=== PATIENT | female | born 1980 | race Caucasian/White ===

== ENCOUNTER 2017-08-12 17:13 | Emergency (ER) | payer OTHER ==
[~2017-08-12] VITALS: Ht 160 cm; Wt 119.8 kg
[~2017-08-12 17:13] MED LIST: ACET325 PO; ALBU90OI INH; AMOX500 PO; AZIT250 PO; AZIT500 PO; CODACE30 PO; CYCL10 PO; DIPATR PO; HYDACE5 PO; HYDGUAL120 PO; IBUP200; IBUP600 PO; IBUP800 PO; METCAR500 PO; MULVITA PO; NAPR250 PO; NAPR500 PO; OXYACE5T PO; PENVK500 PO; PROM25 PO; RXCODACET PO; RXHYDACE PO; RXHYDGUAS PO; TRIHYD253B PO
[2017-08-12] MEDS ORDERED: Pseudoephedrine30 MG PO (18:01)
[2017-08-12] MEDS ORDERED: Augmentin 875-1 EACH PO (18:01)
[2017-08-12] MEDS ORDERED: Mucinex600 MG PO (18:01)
[2018-07-07] MEDS ORDERED: Veetids 500500 MG PO (03:25)
== END 2017-08-12 18:18 | disposition home or self-care (01) ==
LOC: ER 17:13
DX: H66.92 Otitis media, unspecified, left ear (principal); Z91.012 Allergy to eggs; Z88.8 Allergy status to other drugs, medicaments and biological substances
CPT/HCPCS: 99283

== ENCOUNTER 2017-10-28 13:35 | Emergency (ER) | payer OTHER ==
[~2017-10-28] VITALS: Ht 160 cm; Wt 117.9 kg
[~2017-10-28 13:35] MED LIST changes: +Augmentin 875-1 EACH PO; +Mucinex600 MG PO; +Pseudoephedrine30 MG PO
[2017-10-28] MEDS ORDERED: Sudogest60 MG PO (14:31)
[2017-10-28] MEDS ORDERED: Amoxicillin500 MG PO (14:31)
[2018-07-07] MEDS ORDERED: Veetids 500500 MG PO (03:25)
== END 2017-10-28 14:53 | disposition home or self-care (01) ==
LOC: ER 13:35
DX: K02.9 Dental caries, unspecified (principal); K03.81 Cracked tooth; I10 Essential (primary) hypertension; Z87.891 Personal history of nicotine dependence; Z91.012 Allergy to eggs; Z88.8 Allergy status to other drugs, medicaments and biological substances; Z79.899 Other long term (current) drug therapy
CPT/HCPCS: 64400; 99283

== ENCOUNTER 2019-02-01 02:47 | Inpatient (IN) | payer OTHER ==
[~2019-02-01] VITALS: Ht 160 cm; Wt 116.2 kg
[~2019-02-01 02:47] MED LIST changes: +Amoxicillin500 MG PO; +Sudogest60 MG PO; +Veetids 500500 MG PO
[2019-02-01 03:20] LABS: BASOPHILS ABSOLUTE AUTO 0.08 K/mm3 (0.00-0.23); BASOPHILS PERCENT AUTO 1 % (0-2); EOSINOPHILS ABSOLUTE AUTO 0.38 K/mm3 (0.00-0.68); EOSINOPHILS PERCENT AUTO 2 % (0-6); Hematocrit 40.7 % (33.0-51.0); Hemoglobin 12.7 g/dL (11.5-16.0); IMMATURE GRAN ABSOLUTE AUTO 0.07 K/mm3 (0.00-0.10); IMMATURE GRAN PERCENT AUTO 0 % (0-1); LYMPHOCYTES ABSOLUTE AUTO 2.78 K/mm3 (0.84-5.20); LYMPHOCYTES PERCENT AUTO 16 % (21-46); MONOCYTES ABSOLUTE AUTO 1.01 K/mm3 (0.16-1.47); MONOCYTES PERCENT AUTO 6 % (4-13); Mean Corpuscular HGB 27.1 pg (26.0-34.0); Mean Corpuscular HGB Conc 31.2 g/dL (31.5-36.5); Mean Corpuscular Volume 87 fL (80-100); Mean Platelet Volume 9.7 fL (9.1-12.4); NEUTROPHILS PERCENT AUTO 75 % (41-73); Platelet Count 419 K/mm3 (150-400); RDW Coefficient Variation 15.6 % (11.7-14.2); RDW Standard Deviation 48.8 fL (35.1-46.3); Red Blood Cell Count 4.68 M/mm3 (3.80-5.20); White Blood Cell Count 17.42 K/mm3 (4.00-11.30)
[2019-02-01 03:41] LABS: Alanine Aminotransfer (ALT/SGP 91 U/L (12-78); Albumin, Blood 3.1 g/dL (3.4-5.0); Albumin/Globulin Ratio 0.9 (0.8-1.8); Alk Phos 151 U/L (50-136); Anion Gap 8 mmol/L (6-16); Aspartate Aminotrans (AST/SGOT 88 U/L (12-37); Bilirubin, Total 1.9 mg/dL (0.1-1.0); Blood Urea Nitrogen 21 mg/dL (8-24); Bun/Creatinine Ratio 23.6 (12.0-20.0); CO2, Blood 22 mmol/L (21-32); Calcium, Blood 8.3 mg/dL (8.5-10.1); Chloride, Blood 109 mmol/L (98-108); Creatinine, Blood 0.89 mg/dL (0.40-1.00); Globulin, Blood 3.5 g/dL (2.2-4.0); Glomerular Filtration Rate >60 (60-); Glucose, Blood 141 mg/dL (70-99); Potassium, Blood 4.6 mmol/L (3.5-5.5); Sodium, Blood 139 mmol/L (136-145); Total Protein, Blood 6.6 g/dL (6.4-8.2)
[2019-02-01 04:21] LABS: Source, Urine Clean Catch
[2019-02-01 04:33] LABS: Base Excess Venous -4.9 mmol/L; Bicarbonate Venous 21.6 mmol/L (24.0-30.0); PCO2 Venous 25.2 mmHg (38-42); PO2 Venous 134 mmHg (38-42); pH Blood Venous 7.48 (7.34-7.37)
[2019-02-01 04:38] LABS: Bilirubin, Urine Neg (Neg); Blood, Urine 5+ (Neg); Glucose Qualitative, Urine Neg (Neg); Ketones, Urine Neg (Neg); Leukocyte Esterase, Urine 1+ (Neg); Nitrite, Urine Neg (Neg); Protein, Urine 3+ (Neg); Urobilinogen, Urine NORM (Normal)
[2019-02-01 04:47] LABS: Appearance, Urine Hazy (Clear); Color, Urine Yellow (P-Yellow); U Amphetamine Screen Not Detected; U Barbituate Screen Not Detected; U Benzodiazapine Screen Not Detected; U Buprenorphine Screen Not Detected; U Cannabinoids Screen Not Detected; U Cocaine Screen Not Detected; U Methadone Screen Not Detected; U Methamphetamine Screen Not Detected; U Opiates Screen Not Detected; U Oxycodone Screen Not Detected; U Phencyclidine Screen Not Detected; U Propoxyphene Screen Not Detected
[2019-02-01 04:49] LABS: Bacteria Few /hpf; Mucus Light (0-Heavy); Red Blood Cells, Urine TNTC /hpf (0-2); Squamous Epithelial Cells Few /hpf (Few); White Blood Cells, Urine 0-2 /hpf (0-5)
[2019-02-01 06:51] LABS: Free Thyroxine 1.09 ng/dL (0.70-1.60)
[2019-02-01 06:54] LABS: Thyroid Stimulating Hormone 2.71 uIU/mL (0.360-4.800)
--- NOTE | 2019-02-01 08:10 | NUR ---
ARRIVAL TO UNIT Assumed care of pt upon arrival to unit at 0705 with Maximilian CHEN. Telephone report received from offgoing ED RN, Mariluz. Pt arrived on room air. Transferred from ED [facility] to ICU bed with SBA. Pt weak and had dyspnea with exertion. Placed on 2 LPM NC. Diminished lung sounds on right side. Clear lung sounds on left side. Sinus tachycardia per monitor. Pt A&O x 4. Able to answer all questions for admission. Voids into bedside commode. Pt states she is currently menstruating. Provided with pad and underwear. Pt's spouse at bedside at this time. Call placed to Dr Soto to obtain order for mucolytic as pt has dry, harsh cough. Pt currently PCU status.
--- NOTE | 2019-02-01 08:53 | NUR ---
Echocardiogram completed.
--- NOTE | 2019-02-01 10:50 | NUR ---
ORTHOSTATICS Supine: BP: 103/70 HR: 101 Sitting: BP: 107/72 HR: 100 Standing: BP: 113/76 HR: 103
[2019-02-01 11:13] LABS: CPK Creatine Kinase 61 U/L (26-193); Troponin I <0.015 ng/mL (0.000-0.040)
--- NOTE | 2019-02-01 11:20 | NUR ---
UPDATE Pt has been OOB several times to use BSC. Initially, pt tolerated activity well with some dyspnea with exertion and weakness. Pt has had over 1300 mL urine ouput since arrival to unit. Dr Soto in to see pt this AM. After provider left, pt used commode and experienced shortness of breath, diaphoresis, chest pain, and nausea. Pt assisted back to bed. This RN placed call to Dr Soto to update. Provider entered new orders. While pt having abdominal ultrasound, pt was noted to be extremely pale with perioral cyanosis. Pt was talking to staff; stated no new symptoms. This RN placed call to Dr Soto and asked her to see the patient. Provider ordered cardiology consult. Provider visited bedside to reassess. Dr Olvera notified of consult by Maximilian CHEN.
[2019-02-01 11:26] LABS: Hematocrit 40.2 % (33.0-51.0); Hemoglobin 12.6 g/dL (11.5-16.0)
[2019-02-01 11:40] LABS: Very Low Density Lipoprot Chol 20 mg/dL (6-28)
[2019-02-01 11:41] LABS: Cholesterol 97 mg/dL (50-200); HDL Cholesterol 24 mg/dL (>39); LDL/HDL RATIO 2.2; Low Density Lipoprotein Chol 53 mg/dL (0-110); Triglycerides 100 mg/dL (30-140)
[2019-02-01 12:09] LABS: International Normalized Ratio 1.29; Prothrombin Time Results 13.4 Sec (9.7-11.5)
--- NOTE | 2019-02-01 14:53 | NUR ---
EDUCATION This RN educated pt about spironalactone, furosemide, carvedilol, and lisinopril. Educated on reason why pt is taking these medications and side effects of these medications. Also educated on low-salt low-fat diet and heart failure. Provided printed materials. Pt's spouse in room at time of education. Pt and spouse both asked questions and verbalized understanding at end of discussion.
--- NOTE | 2019-02-01 18:09 | NUR ---
SUMMARY No acute changes since last note. Pt on room air. OOB to take a shower. Tolerated this activity well. Will continue to closely monitor until care handoff and bedside report with oncoming RN.
--- NOTE | 2019-02-01 18:12 | NUR ---
PROTONIX Advised by pharmacist to administer next dose of protonix at 2100, considering time of last dose given.
--- NOTE | 2019-02-01 19:30 | NUR ---
ASSUMED CARE BEDSIDE REPORT RECIEVED. PT IS SITTING UP IN BED, AWAKE, ALERT, AND ORIENTED. PT DENIES PAIN OR DISCOMFORT. PT REPORTS THAT BREATHING FEELS MUCH EASIER AFTER GIVEN DIURETIC. PT UP TO TOILET WITH SBA TO VOID WELL. IV SALINE LOCKED. PT ON ROOM AIR, VITAL SIGN STABLE. WILL CONTINUE TO MONITOR.
[2019-02-01 19:44] LABS: CPK Creatine Kinase 62 U/L (26-193); Troponin I <0.015 ng/mL (0.000-0.040)
[2019-02-02 03:21] LABS: BASOPHILS ABSOLUTE AUTO 0.04 K/mm3 (0.00-0.23); BASOPHILS PERCENT AUTO 0 % (0-2); EOSINOPHILS ABSOLUTE AUTO 0.01 K/mm3 (0.00-0.68); EOSINOPHILS PERCENT AUTO 0 % (0-6); Hematocrit 38.9 % (33.0-51.0); Hemoglobin 11.9 g/dL (11.5-16.0); IMMATURE GRAN ABSOLUTE AUTO 0.16 K/mm3 (0.00-0.10); IMMATURE GRAN PERCENT AUTO 1 % (0-1); LYMPHOCYTES ABSOLUTE AUTO 1.41 K/mm3 (0.84-5.20); LYMPHOCYTES PERCENT AUTO 6 % (21-46); MONOCYTES ABSOLUTE AUTO 0.63 K/mm3 (0.16-1.47); MONOCYTES PERCENT AUTO 3 % (4-13); Mean Corpuscular HGB 27.2 pg (26.0-34.0); Mean Corpuscular HGB Conc 30.6 g/dL (31.5-36.5); Mean Corpuscular Volume 89 fL (80-100); NEUTROPHILS ABSOLUTE AUTO 21.97 K/mm3 (1.96-9.15); NEUTROPHILS PERCENT AUTO 91 % (41-73); Platelet Count 356 K/mm3 (150-400); RDW Coefficient Variation 15.7 % (11.7-14.2); RDW Standard Deviation 50.9 fL (35.1-46.3); Red Blood Cell Count 4.38 M/mm3 (3.80-5.20); White Blood Cell Count 24.22 K/mm3 (4.00-11.30)
[2019-02-02 03:38] LABS: Alanine Aminotransfer (ALT/SGP 89 U/L (12-78); Albumin, Blood 2.8 g/dL (3.4-5.0); Albumin/Globulin Ratio 0.8 (0.8-1.8); Alk Phos 120 U/L (50-136); Anion Gap 7 mmol/L (6-16); Aspartate Aminotrans (AST/SGOT 52 U/L (12-37); Bilirubin, Total 1.1 mg/dL (0.1-1.0); Blood Urea Nitrogen 29 mg/dL (8-24); Bun/Creatinine Ratio 30.9 (12.0-20.0); CO2, Blood 24 mmol/L (21-32); Chloride, Blood 107 mmol/L (98-108); Creatinine, Blood 0.94 mg/dL (0.40-1.00); Globulin, Blood 3.4 g/dL (2.2-4.0); Glomerular Filtration Rate >60 (60-); Glucose, Blood 156 mg/dL (70-99); Potassium, Blood 4.5 mmol/L (3.5-5.5); Sodium, Blood 138 mmol/L (136-145); Total Protein, Blood 6.2 g/dL (6.4-8.2)
--- NOTE | 2019-02-02 05:46 | NUR ---
SHIFT SUMMARY NO ACUTE CHANGES THIS SHIFT. PT HAS RESTED IN BED QUIETLY FOR MOST OF THE NIGHT. WHEN AWAKE PT IS ALERT AND ORIENTED. PT HAS DENIED PAIN OR SOB. PT UP TO TOILET TO VOID MULTIPLE TIMES THIS SHIFT, GOOD URINE OUTPUT NOTED. PT PLACED ON 2L O2 NC WHILE SLEEPING. VITAL SIGNS HAVE REMAINED STABLE. WILL CONTINUE TO MONITOR AND REPORT OFF TO ONCOMING RN.
--- NOTE | 2019-02-02 07:05 | NUR ---
ASSUMED CARE: RECEIVED REPORT FROM [facility] RN BENJA LEAL. UPON ENTERING ROOM PT IS LYING IN BED WITH HEAD OF BEED ELAVATED AT APPROX 45 DEGREE ANGLE. NO DISTRESS NOTED AT THIS TIME. PT EYE APPEAR TO BE HEAVY, STATES SHE IS FEELING VERY DROUSY, RECEIVED PHENERGAN AT 0616. PT DENIES ANY NAUSEA AT THIS TIME. PCT ASSISTED PT TO TOILET IN ROOM PRIOR TO THIS RN ENTERING ROOM, RECEIVED REPORT PT HANDLED WELL. VITAL SIGNS APPEAR STABLE AT THIS TIME. WILL CONTINUE TO MONITOR AND ASSESS FURTHER.
--- NOTE | 2019-02-02 08:15 | NUR ---
TO IMAGING: TRANSFERED PT DOWN TO IMAGING BY WHEEL CHAIR FOR 2 VIEW CHEST X-RAY. NO DISTRESS WITH TRANSFER TO OR FROM IMAGING. PT TOLLERATED WELL.
--- NOTE | 2019-02-02 16:26 | NUR ---
UPDATE: PT HAS BEEN SLEEPING T/O THE DAY. WAKES EASILY TO USE THE BATHROOM AND VISIT WITH FAMILY IN PERSON OR ON THE PHONE. VSS AT THIS TIME.
--- NOTE | 2019-02-02 18:42 | NUR ---
SHIFT SUMMARY: PT HAS APPEARED TO SLEEP FOR LARGE PORTIONS OF THE DAY, WAKING EASILY WHEN NEEDING TO URINATE OR TO STAFF WHEN ENTERING THE ROOM. NO DISTRESS T/O THE DAY. PT STATES DECREASED DIZZYNESS OR LIGHTHEADEDNESS WITH STANDING AND USING THE TOILET. VSS T/O THE DAY. WILL CONTINUE TO MONITOR AND REPORT TO ONCOMING RN.
[2019-02-03 03:27] LABS: BASOPHILS ABSOLUTE AUTO 0.06 K/mm3 (0.00-0.23); BASOPHILS PERCENT AUTO 0 % (0-2); EOSINOPHILS ABSOLUTE AUTO 1.17 K/mm3 (0.00-0.68); EOSINOPHILS PERCENT AUTO 5 % (0-6); Hematocrit 41.4 % (33.0-51.0); Hemoglobin 12.7 g/dL (11.5-16.0); IMMATURE GRAN PERCENT AUTO 0 % (0-1); LYMPHOCYTES ABSOLUTE AUTO 4.29 K/mm3 (0.84-5.20); LYMPHOCYTES PERCENT AUTO 19 % (21-46); MONOCYTES ABSOLUTE AUTO 1.15 K/mm3 (0.16-1.47); MONOCYTES PERCENT AUTO 5 % (4-13); Mean Corpuscular HGB Conc 30.7 g/dL (31.5-36.5); Mean Corpuscular Volume 88 fL (80-100); Mean Platelet Volume 10.1 fL (9.1-12.4); NEUTROPHILS ABSOLUTE AUTO 15.75 K/mm3 (1.96-9.15); NEUTROPHILS PERCENT AUTO 70 % (41-73); Platelet Count 391 K/mm3 (150-400); RDW Standard Deviation 50.4 fL (35.1-46.3); Red Blood Cell Count 4.71 M/mm3 (3.80-5.20); White Blood Cell Count 22.52 K/mm3 (4.00-11.30)
[2019-02-03 03:43] LABS: Anion Gap 6 mmol/L (6-16); Blood Urea Nitrogen 41 mg/dL (8-24); Bun/Creatinine Ratio 38.3 (12.0-20.0); CO2, Blood 28 mmol/L (21-32); Calcium, Blood 8.1 mg/dL (8.5-10.1); Chloride, Blood 105 mmol/L (98-108); Creatinine, Blood 1.07 mg/dL (0.40-1.00); Glomerular Filtration Rate >60 (60-); Glucose, Blood 117 mg/dL (70-99); Magnesium, Blood 2.2 mg/dL (1.6-2.4); Potassium, Blood 4.3 mmol/L (3.5-5.5); Sodium, Blood 139 mmol/L (136-145)
--- NOTE | 2019-02-03 07:25 | NUR ---
ASSUMED CARE: RECEIVED REPORT FROM NOC RN LUIZ SANCHEZ. PT LYING IN BED UPON ENTERING THE ROOM LYING AT APPROX 45 DEGREE ANGLE. PT WAKES EASILY UPON ENTERING THE ROOM. NO SIGN OF DISTRESS NOTED. WILL CONTINUE TO MONITOR AND ASSESS FURTHER.
--- NOTE | 2019-02-03 08:36 | NUR ---
HYDA SCAN: PT IS GOING TO BE LEAVING FOR SCAN THIS AM. RECEIVED TELE BOX FROM PCU FOR PROCEDURE. [facility]DRA AT THIS TIME.
--- NOTE | 2019-02-03 08:41 | NUR ---
LEFT UNIT: PT LEFT UNIT FOR HYDA SCAN AT THIS TIME. VERAFIED WITH PCU CHARGE ASPEN PT SEEN ON TELE, REPORT OF SINUS 81.
--- NOTE | 2019-02-03 10:30 | NUR ---
RETURN TO UNIT: PT ARIVED BACK FROM RECEIVING HYDA SCAN AT APPROX 1000. NO DISTRESS NOTED. DISCONNECTED TELE BOX AND PLACED ON ICU REQUIREMENTS ENGINEER @ APPROX 1020
--- NOTE | 2019-02-03 11:07 | NUR ---
SHOWER: PCT ASSISTING PT WITH SHOWER AT THIS TIME.
--- NOTE | 2019-02-03 18:23 | NUR ---
SHIFT SUMMARY: NO ACUTE CHANGES NOTED T/O THE DAY. PT HAD HER HYDA SCAN THIS AM WITH NO DISTRESS NOTED. PT HAS BEEN UP TO THE BSC INDEPENDENTLY THIS SHIFT. VSS T/O THE SHIFT. NO RHYTHEM CHANGES OR CONCERNS T/O THE DAY. PT DENIES ANY CHEST PAIN OR DISCOMFORT. SOME SOB WITH EXERSION, BUT MUCH BETTER THAN PREVIOUSLY NOTED THE DAY BEFORE. WILL CONTINUE TO MONITOR AND REPORT TO ONCOMING RN.
[2019-02-04 03:18] LABS: BASOPHILS ABSOLUTE AUTO 0.09 K/mm3 (0.00-0.23); BASOPHILS PERCENT AUTO 1 % (0-2); EOSINOPHILS ABSOLUTE AUTO 1.27 K/mm3 (0.00-0.68); EOSINOPHILS PERCENT AUTO 8 % (0-6); Hematocrit 43.5 % (33.0-51.0); Hemoglobin 13.4 g/dL (11.5-16.0); IMMATURE GRAN ABSOLUTE AUTO 0.08 K/mm3 (0.00-0.10); IMMATURE GRAN PERCENT AUTO 1 % (0-1); LYMPHOCYTES ABSOLUTE AUTO 3.65 K/mm3 (0.84-5.20); LYMPHOCYTES PERCENT AUTO 24 % (21-46); MONOCYTES ABSOLUTE AUTO 0.83 K/mm3 (0.16-1.47); MONOCYTES PERCENT AUTO 5 % (4-13); Mean Corpuscular HGB 27.3 pg (26.0-34.0); Mean Corpuscular HGB Conc 30.8 g/dL (31.5-36.5); Mean Corpuscular Volume 89 fL (80-100); Mean Platelet Volume 9.9 fL (9.1-12.4); NEUTROPHILS ABSOLUTE AUTO 9.31 K/mm3 (1.96-9.15); NEUTROPHILS PERCENT AUTO 61 % (41-73); Platelet Count 376 K/mm3 (150-400); RDW Coefficient Variation 15.8 % (11.7-14.2); RDW Standard Deviation 50.7 fL (35.1-46.3); Red Blood Cell Count 4.91 M/mm3 (3.80-5.20); White Blood Cell Count 15.23 K/mm3 (4.00-11.30)
[2019-02-04 03:34] LABS: Anion Gap 7 mmol/L (6-16); Blood Urea Nitrogen 38 mg/dL (8-24); CO2, Blood 30 mmol/L (21-32); Calcium, Blood 8.3 mg/dL (8.5-10.1); Chloride, Blood 103 mmol/L (98-108); Glomerular Filtration Rate >60 (60-); Glucose, Blood 107 mg/dL (70-99); Potassium, Blood 4.1 mmol/L (3.5-5.5); Sodium, Blood 140 mmol/L (136-145)
--- NOTE | 2019-02-04 06:42 | NUR ---
PT A+O X4 AND APPROPRIATE T/O NOC. PT INDEPENDENT IN ROOM USING BSC PRN. VSS. SEE I+O FOR IN AND OUTPUT.
--- NOTE | 2019-02-04 07:05 | NUR ---
ASSUMED CARE: RECEIVED REPORT FROM NOC RN. PT SITTING UP IN BED. NO DISTRESS NOTED. PT APPEARS TO BE SITTING AT APPROX 20-30 DEGREE ANGLE NO SOB NOTED. PT APPEARS TO BE FEELING MUCH BETTER, GOOD COLOR, MORE ENERGETIC. VSS AT THIS TIME. WILL CONTINUE TO MONITOR AND ASSESS FURTHER.
--- NOTE | 2019-02-04 12:29 | NUR ---
TRANSFER: WAITING ON ROOM 304 TO BE CLEANED. REPORT GIVEN TO SHAWN Aleman RN
--- NOTE | 2019-02-04 14:07 | NUR ---
PATIENT ARRIVED TO THE UNIT VIA STRETCHER. ABLE TO MAKE HER NEEDS KNOWN. GIVEN CRAN/APPLE JUICE.
--- NOTE | 2019-02-04 18:43 | NUR ---
PATIENT CAME TO THE FLOOR FROM ICU. ALERT AND ORIENTED. NO ACUTE ISSUES NOTED.
--- NOTE | 2019-02-04 19:10 | NUR ---
PATIENT WAS NOT AWARE TO KEEP TRACK OUT URINE OUTPUT. HAT PLACED AND EDUCATED FOR STRICT I&0.
--- NOTE | 2019-02-05 05:11 | NUR ---
SUMMARY: A/OX4, PLEASANT/COOPERATIVE W/CARE AND SPECIFIES NEEDS. SHE'S SBA TO BSC AND REPORTS LESS UO AFTER SWITCHING TO PO DIURETICS THIS SHIFT. VERY MINIMAL SWELLING PERSISTS BUT HASN'T WORSENED. [address] IN [address]. PT REMAINS NSR-TACHYCARDIC PER TELEMETRY, HR 90'S-100'S. SHE CONT'S SOB W/EXERTION AND OCCASIONALLY DURING CONVERSTATION. NO ACUTE CHANGES, VSS AND AFEBRILE. WCTM AND REPORT TO DAY RN.
[2019-02-05 11:07] LABS: BASOPHILS ABSOLUTE AUTO 0.08 K/mm3 (0.00-0.23); BASOPHILS PERCENT AUTO 1 % (0-2); EOSINOPHILS ABSOLUTE AUTO 0.92 K/mm3 (0.00-0.68); EOSINOPHILS PERCENT AUTO 7 % (0-6); Hematocrit 47.4 % (33.0-51.0); Hemoglobin 14.4 g/dL (11.5-16.0); IMMATURE GRAN ABSOLUTE AUTO 0.08 K/mm3 (0.00-0.10); IMMATURE GRAN PERCENT AUTO 1 % (0-1); LYMPHOCYTES ABSOLUTE AUTO 2.46 K/mm3 (0.84-5.20); LYMPHOCYTES PERCENT AUTO 18 % (21-46); MONOCYTES PERCENT AUTO 5 % (4-13); Mean Corpuscular HGB 26.4 pg (26.0-34.0); Mean Corpuscular HGB Conc 30.4 g/dL (31.5-36.5); Mean Corpuscular Volume 87 fL (80-100); Mean Platelet Volume 9.6 fL (9.1-12.4); NEUTROPHILS ABSOLUTE AUTO 9.47 K/mm3 (1.96-9.15); NEUTROPHILS PERCENT AUTO 69 % (41-73); Platelet Count 443 K/mm3 (150-400); RDW Standard Deviation 49.2 fL (35.1-46.3); Red Blood Cell Count 5.46 M/mm3 (3.80-5.20); White Blood Cell Count 13.71 K/mm3 (4.00-11.30)
--- NOTE | 2019-02-05 18:09 | NUR ---
SHIFT SUMMARY ASSUMED CARE AT APPROXIMATELY 1640. PT ALERT AND ORIENTED. VS STABLE. O2 SATS REMAIN ABOVE 90% ON RA. PT DENIES ANY CHEST PAIN. LS CLEAR TO ASCULTATION. RIGHT RADIAL SITE HAS TR BAND IN PLACE WITH 11CC OF AIR INFLATED. NO SIGNS OF BLEEDING, BRUISING, OR HEMATOMA NOTED. FAMILY AT BEDSIDE. WILL CONTINUE TO MONITOR AND REPORT TO ONCOMING RN. CALL LIGHT IN REACH. PT CALLING APPROPRIATELY.
--- NOTE | 2019-02-05 23:19 | NUR ---
PCU NIGHTSHIFT ASSUMED CARE OF PT APPROX. 1900. PT A&OX4. ASSESSMENT COMPLETED. VITAL SIGNS STABLE. PT HAS RIGHT RADIAL SITE, POST ANGIO. TODAY. TR BAND REMAINS IN PLACE AND ARMBOARD IN PLACE WELL. BEGAN LETTING AIR OUT APPROX. 2000 PER PROTOCOL. NO S/SX OF BLEEDING, SWELLING OR HEMATOMA NOTED. SMALL AMOUNT OF BRUISING NOTED BY IV SITE IN RIGHT FORARM THAT PT REPORTS TO BE FROM PREVIOUS IV. PT ABLE TO AMBULATE AROUND ROOM AND TOLERATES WELL. BED IN LOW POSITON, CALL LIGHT IN REACH AND PT DENIES ANY NEEDS.
--- NOTE | 2019-02-06 05:31 | NUR ---
SHIFT SUMMARY PT PLEASANT, COOPERATIVE AND USES CALL LIGHT APPROPRIATELY. PT REMAINS A&OX4. VITAL SIGNS REMAIN STABLE AND ASSESSMENT FINDINGS REMAIN UNCHANGED. NO CHANGES IN RIGHT RADIAL SITE. TR BAND OFF APPROX. 0000 W/ NO S/SX OF BLEEDING, HEMATOME, OR SWELLING. SITE REMAIN NON TENDER WITH PALPITATION. DRESSING PLACED OVER INCISION SITE. ARMBOARD REMAINS IN PLACE. PT ABLE TO AMBUATLE TO BATHROOM T/O SHIFT NEEDED AND TOLERATED WELL. BED IN LOW POSITION, CALL LIGHT IN REACH AND PT DENIES ANY NEEDS AT THIS TIME. WILL CONTINUE TO MONITOR UNTIL HANDOFF TO DAYSHIFT RN.
--- NOTE | 2019-02-06 08:30 | NUR ---
pt laying in bed in good spirits this am, denies any complaints. states she slept well durring the night. she reports a feeling of sob. a/ox3, pleasant and cooperative with care, follows commands well, lungs are clear t/o, resp even and unlabored, no cough noted, hrr, tele in place running st in low 100's, no edema noted, ppp+2, cap refill <3sec, vs stable, afebrile, iv site is clear and patent, btx4, abd flat soft nontender, voids without diff, skin c/w/d, has tr band site to right wrist, site is clear and has arm band in place, mamike, up indep in room, lesvia, call light in reach.
--- NOTE | 2019-02-06 14:32 | NUR ---
wants pt to be fitted for a life vest before leaving if she is ok with it. this is in prgress to get this ordered, paperwork was done. pt may not go home until tomorrow if approved tomorrow. no complaints or needs call light in reach.
--- NOTE | 2019-02-06 18:36 | NUR ---
pt waiting on a life vest, will go home tomorrow after that is fitted, spouce was in to see her. no acute changes this shift. call light in reach.
--- NOTE | 2019-02-07 01:31 | NUR ---
Assumed care at approx 1915. VSS. No apparent sign of distress. Breathing easy and unlabored. Pt complaint of SOB with ambulation. Pt walked throughout the halls this shift. Alert and oriented, independant in room. Denies chest pain or pressure. Denies SOB at rest. See shift assessment for detailed assessment. Able to make needs known, uses call light appropriately. Will continue to monitor.
--- NOTE | 2019-02-07 04:45 | NUR ---
Shift Summary No acute changes. VSS. no increasing SOB, no changes in oxygen demand, pt remaind stable o2 saturations >90% on RA. Pt denies chest pain or pressure. Pt states chest "discomfort" relieved with "burping". Pt with one event of moderate chest discomfort relieved with reposition. Pt alert and oriented, independant in room, able to make needs known. No changes from initial assessment, no change in lung ascultation. Breathing easy and unlabored. Will continue to monitor.
--- NOTE | 2019-02-07 08:00 | NUR ---
pt laying in bed awake a/ox3, pleasant and cooperative with care, follows commands well, denies pain or sob, states she ambulated around halls yesterday, but could only go a short distance and had to come back. lungs are clear t/o, resp even and unlabored, no cough noted, hrr, tele in place running sr per monitor see strip, no edema noted, ppp+2, cap refill <3 sec, vs stable, afebrile, iv site is clear and patent, btx4, abd flat soft nontender, voids without diff, skin c/w/d, has angio site to [facility], arm board in place, maew, up ad kelin in room, gait noted to be steady, lesvia, call light in reach.
--- NOTE | 2019-02-07 13:06 | NUR ---
PT LAYING IN BED WAITING ON LIFE VEST TO BE APPROVED, ATE 100% OF HER LUNCH, IS VERY COMPLIANT TO FLUID RESTRICTION. NO COMPLAINTS STATES SHE FEELS LIKE SHE IS READY TO GO HOME. CALL LIGHT IN REACH.
[2019-02-07] MEDS ORDERED: ASPI81CH PO (18:21)
[2019-02-07] MEDS ORDERED: FURO40 PO (18:22)
[2019-02-07] MEDS ORDERED: CARV3.125 PO (18:22)
[2019-02-07] MEDS ORDERED: Lisinopril2.5 MG PO (18:23)
[2019-02-07] MEDS ORDERED: SPIR25 PO (18:23)
--- NOTE | 2019-02-07 19:08 | NUR ---
PT HAS BEEN DISCHARGED TO HOME, WENT OVER ALL DISCHARGE INSTRUCTIONS, NEW MEDICATIONS WERE CALLED INTO [facility], IV REMOVED INTACT, SHE VERBALIZES UNDERSTANDING, DIETITAN CONSULTED WITH HER TODAY REGARDING HER DIET, SHE FEELS LIKE SHE HAS GOOD SUPPORT AND UNDERSTANDING, F/U APPT WAS MADE WITH DR. RAGLAND OFFICE, SHE WILL MAKE F/U WITH HER PCP, SHE WAS FITTED WITH THE LIFE VEST AND HAS A GOOD UNDERSTANDING OF HOW TO USE. LEFT VIA WHEELCHAIR WITH SQUEEGEE OPERATOR IN ATTENDENCE.
== END 2019-02-07 19:10 | disposition home or self-care (01) | DRG 286 ==
LOC: ER 02:47 → ICUW 06:22 → MEDS 02-04 12:54 → PCU 02-05 16:49
PROVIDERS: Emergency Medicine; Family Medicine; Hospitalist; Internal Medicine; ADMIT Internal Medicine
PROC: B2111ZZ Fluoroscopy of Multiple Coronary Arteries using Low Osmolar Contrast (ICD-10-PCS; principal; 2019-02-05)
DX: I11.0 Hypertensive heart disease with heart failure (principal); I50.21 Acute systolic (congestive) heart failure; J18.9 Pneumonia, unspecified organism; A41.9 Sepsis, unspecified organism; Z68.42 Body mass index [BMI] 45.0-49.9, adult; Z87.891 Personal history of nicotine dependence; E66.01 Morbid (severe) obesity due to excess calories; R06.03 Acute respiratory distress; I42.8 Other cardiomyopathies; Z79.82 Long term (current) use of aspirin
CPT/HCPCS: 36415; 36416; 71045; 71046; 71260; 76705; 78226; 80048; 80053; 80061; 81001; 81025; 82550; 82803; 82947; 83605; 83735; 83880; 84145; 84439; 84443; 84484; 85014; 85018; 85025; 85027; 85379; 85610; 85730; 87086; 93005; 93010; 93306; 93458; 94640; 94660; 96361-59; 96365-59; 96375-59; 99152; 99153; 99285-25; A9537; C1769; C1894; C9113; J0456; J0696; J1644; J1650; J1885; J1940; J1956; J2250; J2405; J2550; J2930; J3010; J7030; J7050; Q9967

== ENCOUNTER 2019-03-06 13:13 | Emergency (ER) | payer OTHER ==
[~2019-03-06] VITALS: Ht 160 cm; Wt 117.9 kg
[~2019-03-06 13:13] MED LIST changes: +ASPI81CH PO; +CARV3.125 PO; +FURO40 PO; +Lisinopril2.5 MG PO; +SPIR25 PO
[2019-03-06] MEDS ORDERED: POTCHL20ER (13:48)
[2019-03-06 14:10] LABS: BASOPHILS ABSOLUTE AUTO 0.05 K/mm3 (0.00-0.23); BASOPHILS PERCENT AUTO 1 % (0-2); EOSINOPHILS ABSOLUTE AUTO 0.31 K/mm3 (0.00-0.68); EOSINOPHILS PERCENT AUTO 3 % (0-6); Hemoglobin 14.4 g/dL (11.5-16.0); IMMATURE GRAN ABSOLUTE AUTO 0.03 K/mm3 (0.00-0.10); IMMATURE GRAN PERCENT AUTO 0 % (0-1); LYMPHOCYTES ABSOLUTE AUTO 2.48 K/mm3 (0.84-5.20); LYMPHOCYTES PERCENT AUTO 23 % (21-46); MONOCYTES ABSOLUTE AUTO 0.88 K/mm3 (0.16-1.47); MONOCYTES PERCENT AUTO 8 % (4-13); Mean Corpuscular HGB Conc 32.7 g/dL (31.5-36.5); Mean Corpuscular Volume 85 fL (80-100); Mean Platelet Volume 9.6 fL (9.1-12.4); NEUTROPHILS ABSOLUTE AUTO 7.27 K/mm3 (1.96-9.15); NEUTROPHILS PERCENT AUTO 66 % (41-73); Platelet Count 310 K/mm3 (150-400); RDW Coefficient Variation 14.4 % (11.7-14.2); RDW Standard Deviation 45.1 fL (35.1-46.3); Red Blood Cell Count 5.15 M/mm3 (3.80-5.20); White Blood Cell Count 11.02 K/mm3 (4.00-11.30)
[2019-03-06 14:29] LABS: Alanine Aminotransfer (ALT/SGP 26 U/L (12-78); Albumin, Blood 3.4 g/dL (3.4-5.0); Albumin/Globulin Ratio 0.9 (0.8-1.8); Alk Phos 100 U/L (50-136); Anion Gap 6 mmol/L (6-16); Aspartate Aminotrans (AST/SGOT 17 U/L (12-37); Bilirubin, Total 1.1 mg/dL (0.1-1.0); Blood Urea Nitrogen 16 mg/dL (8-24); Bun/Creatinine Ratio 18.8 (12.0-20.0); CO2, Blood 24 mmol/L (21-32); Calcium, Blood 8.8 mg/dL (8.5-10.1); Chloride, Blood 109 mmol/L (98-108); Creatinine, Blood 0.85 mg/dL (0.40-1.00); Globulin, Blood 3.6 g/dL (2.2-4.0); Glomerular Filtration Rate >60 (60-); Glucose, Blood 130 mg/dL (70-99); Potassium, Blood 4.2 mmol/L (3.5-5.5); Sodium, Blood 139 mmol/L (136-145)
[2019-03-06] MEDS ORDERED: ONDA4ODT MM (15:54)
== END 2019-03-06 17:03 | disposition home or self-care (01) ==
LOC: ER 13:13
PROVIDERS: Emergency Medicine
DX: R07.89 Other chest pain (principal); R11.2 Nausea with vomiting, unspecified; Z91.012 Allergy to eggs; Z88.8 Allergy status to other drugs, medicaments and biological substances; Z88.1 Allergy status to other antibiotic agents; Z91.018 Allergy to other foods; Z79.82 Long term (current) use of aspirin; Z79.899 Other long term (current) drug therapy; I11.0 Hypertensive heart disease with heart failure; I50.9 Heart failure, unspecified; Z87.891 Personal history of nicotine dependence
CPT/HCPCS: 36415; 71046; 80053; 83880; 84484; 85025; 93005; 93010; 96374; 96375; 99285-25; J0780; J2405; J3010

== ENCOUNTER 2020-06-01 19:32 | Emergency (ER) | payer OTHER ==
[~2020-06-01] VITALS: Ht 160 cm; Wt 129.3 kg
[~2020-06-01 19:32] MED LIST changes: +ONDA4ODT MM; +POTCHL20ER PO
[2020-06-01] MEDS ORDERED: Carvedilol6.25 MG PO (20:01)
[2020-06-01] MEDS ORDERED: ENTRESTO 24 MG1 EACH PO (20:02)
[2020-06-01 20:09] LABS: BASOPHILS ABSOLUTE AUTO 0.06 K/mm3 (0.00-0.23); BASOPHILS PERCENT AUTO 0 % (0-2); EOSINOPHILS ABSOLUTE AUTO 0.38 K/mm3 (0.00-0.68); EOSINOPHILS PERCENT AUTO 3 % (0-6); Hematocrit 40.2 % (33.0-51.0); Hemoglobin 12.6 g/dL (11.5-16.0); IMMATURE GRAN ABSOLUTE AUTO 0.05 K/mm3 (0.00-0.10); IMMATURE GRAN PERCENT AUTO 0 % (0-1); LYMPHOCYTES PERCENT AUTO 23 % (21-46); MONOCYTES ABSOLUTE AUTO 0.92 K/mm3 (0.16-1.47); MONOCYTES PERCENT AUTO 7 % (4-13); Mean Corpuscular HGB 26.9 pg (26.0-34.0); Mean Corpuscular HGB Conc 31.3 g/dL (31.5-36.5); Mean Corpuscular Volume 86 fL (80-100); Mean Platelet Volume 9.1 fL (9.1-12.4); NEUTROPHILS ABSOLUTE AUTO 9.38 K/mm3 (1.96-9.15); NEUTROPHILS PERCENT AUTO 67 % (41-73); Platelet Count 378 K/mm3 (150-400); RDW Coefficient Variation 13.6 % (11.7-14.2); RDW Standard Deviation 41.9 fL (35.1-46.3); Red Blood Cell Count 4.69 M/mm3 (3.80-5.20); White Blood Cell Count 13.99 K/mm3 (4.00-11.30)
[2020-06-01 20:31] LABS: Alanine Aminotransfer (ALT/SGP 24 U/L (12-78); Albumin, Blood 3.1 g/dL (3.4-5.0); Albumin/Globulin Ratio 0.8 (0.8-1.8); Alk Phos 100 U/L (50-136); Anion Gap 6 mmol/L (6-16); Aspartate Aminotrans (AST/SGOT 11 U/L (12-37); Bilirubin, Total 0.5 mg/dL (0.1-1.0); Blood Urea Nitrogen 24 mg/dL (8-24); Bun/Creatinine Ratio 39.3 (12.0-20.0); CO2, Blood 25 mmol/L (21-32); Calcium, Blood 8.6 mg/dL (8.5-10.1); Chloride, Blood 109 mmol/L (98-108); Creatinine, Blood 0.61 mg/dL (0.40-1.00); Globulin, Blood 3.9 g/dL (2.2-4.0); Glomerular Filtration Rate >60 (60-); Glucose, Blood 95 mg/dL (70-99); Potassium, Blood 3.9 mmol/L (3.5-5.5); Sodium, Blood 140 mmol/L (136-145); Troponin I <0.015 ng/mL (0.000-0.040)
[2020-06-01 21:00] LABS: Source, Urine Clean Catch
[2020-06-01 21:27] LABS: Appearance, Urine Clear (Clear); Bilirubin, Urine Neg (Neg); Blood, Urine 2+ (Neg); Color, Urine Yellow (P-Yellow); Glucose Qualitative, Urine Neg (Neg); Ketones, Urine Neg (Neg); Leukocyte Esterase, Urine Neg (Neg); Nitrite, Urine Neg (Neg); Protein, Urine Neg (Neg); Urobilinogen, Urine NORM (Normal)
[2020-06-01 21:28] LABS: Bacteria Not Seen /hpf; Red Blood Cells, Urine 0-2 /hpf (0-2); Squamous Epithelial Cells Few /hpf (Few); White Blood Cells, Urine Not Seen /hpf (0-5)
== END 2020-06-01 23:23 | disposition home or self-care (01) ==
LOC: ER 19:32
PROVIDERS: Emergency Medicine
DX: R07.9 Chest pain, unspecified (principal); I50.9 Heart failure, unspecified; Z88.1 Allergy status to other antibiotic agents; Z88.7 Allergy status to serum and vaccine; Z91.018 Allergy to other foods; Z91.012 Allergy to eggs; Z79.899 Other long term (current) drug therapy; Z87.891 Personal history of nicotine dependence
CPT/HCPCS: 36415; 71045; 80053; 81001; 83880; 84484; 85025; 85379; 93005; 93010; 99285-25

== ENCOUNTER 2020-07-04 16:13 | Inpatient (IN) | payer OTHER ==
[~2020-07-04] VITALS: Ht 160 cm; Wt 127.1 kg
[~2020-07-04 16:13] MED LIST changes: +Carvedilol6.25 MG PO; +ENTRESTO 24 MG1 EACH PO
[2020-07-04 16:58] LABS: BASOPHILS ABSOLUTE AUTO 0.06 K/mm3 (0.00-0.23); BASOPHILS PERCENT AUTO 0 % (0-2); EOSINOPHILS ABSOLUTE AUTO 0.67 K/mm3 (0.00-0.68); EOSINOPHILS PERCENT AUTO 5 % (0-6); Hematocrit 41.6 % (33.0-51.0); Hemoglobin 13.1 g/dL (11.5-16.0); IMMATURE GRAN ABSOLUTE AUTO 0.04 K/mm3 (0.00-0.10); IMMATURE GRAN PERCENT AUTO 0 % (0-1); LYMPHOCYTES ABSOLUTE AUTO 2.32 K/mm3 (0.84-5.20); LYMPHOCYTES PERCENT AUTO 16 % (21-46); MONOCYTES ABSOLUTE AUTO 0.84 K/mm3 (0.16-1.47); MONOCYTES PERCENT AUTO 6 % (4-13); Mean Corpuscular HGB 27.3 pg (26.0-34.0); Mean Corpuscular HGB Conc 31.5 g/dL (31.5-36.5); Mean Corpuscular Volume 87 fL (80-100); Mean Platelet Volume 9.1 fL (9.1-12.4); NEUTROPHILS ABSOLUTE AUTO 10.54 K/mm3 (1.96-9.15); NEUTROPHILS PERCENT AUTO 73 % (41-73); Platelet Count 382 K/mm3 (150-400); RDW Coefficient Variation 13.8 % (11.7-14.2); RDW Standard Deviation 43.3 fL (35.1-46.3); White Blood Cell Count 14.47 K/mm3 (4.00-11.30)
[2020-07-04 17:20] LABS: Alanine Aminotransfer (ALT/SGP 23 U/L (12-78); Albumin, Blood 3.3 g/dL (3.4-5.0); Albumin/Globulin Ratio 0.9 (0.8-1.8); Alk Phos 104 U/L (50-136); Anion Gap 8 mmol/L (6-16); Aspartate Aminotrans (AST/SGOT 15 U/L (12-37); Bilirubin, Total 0.8 mg/dL (0.1-1.0); Blood Urea Nitrogen 12 mg/dL (8-24); Bun/Creatinine Ratio 17.2 (12.0-20.0); CO2, Blood 24 mmol/L (21-32); Calcium, Blood 9.1 mg/dL (8.5-10.1); Chloride, Blood 111 mmol/L (98-108); Globulin, Blood 3.8 g/dL (2.2-4.0); Glomerular Filtration Rate >60 (60-); Glucose, Blood 108 mg/dL (70-99); Potassium, Blood 4.1 mmol/L (3.5-5.5); Sodium, Blood 143 mmol/L (136-145); Total Protein, Blood 7.1 g/dL (6.4-8.2)
[2020-07-04 18:16] LABS: Source, Urine Clean Catch
[2020-07-04 18:21] LABS: Bilirubin, Urine Neg (Neg); Blood, Urine Neg (Neg); Color, Urine Yellow (P-Yellow); Glucose Qualitative, Urine Neg (Neg); Ketones, Urine Neg (Neg); Leukocyte Esterase, Urine 1+ (Neg); Nitrite, Urine Neg (Neg); Protein, Urine Neg (Neg); Urobilinogen, Urine NORM (Normal)
[2020-07-04 18:27] LABS: Appearance, Urine Clear (Clear)
[2020-07-04 18:28] LABS: Red Blood Cells, Urine Rare /hpf (0-2); White Blood Cells, Urine 0-2 /hpf (0-5)
[2020-07-04 18:29] LABS: Bacteria Rare /hpf; Squamous Epithelial Cells Few /hpf (Few)
[2020-07-04] MEDS ORDERED: CARVEDILOL6.25 MG PO (19:03)
[2020-07-04] MEDS ORDERED: CARVEDILOL3.125 MG PO (19:03)
--- NOTE | 2020-07-05 05:03 | NUR ---
PROPERTY ASSISTANT SUMMARY PT ARRIVED ON THE FLOOR W CONTINUING JAW PAIN AND WAS TREATED PER EMAR. PT REPORTS SIGNIFICANT REDUCTION IN SWELLING AND PAIN AFTER RECIEVING TORADOL. PT DENIED ANY OTHER SYMPTOMS AND HAS RESTED ON AND OFF FOR MOST OF THE NIGHT. TELE IN PLACE SINUS 80'S. 0.5 DILUADID GIVEN ONCE WHILE TORADOL BEING GIVEN Q6H. WCTM.
[2020-07-05 05:07] LABS: BASOPHILS ABSOLUTE AUTO 0.01 K/mm3 (0.00-0.23); BASOPHILS PERCENT AUTO 0 % (0-2); EOSINOPHILS PERCENT AUTO 0 % (0-6); Hematocrit 39.9 % (33.0-51.0); Hemoglobin 12.5 g/dL (11.5-16.0); IMMATURE GRAN ABSOLUTE AUTO 0.06 K/mm3 (0.00-0.10); IMMATURE GRAN PERCENT AUTO 1 % (0-1); LYMPHOCYTES ABSOLUTE AUTO 0.97 K/mm3 (0.84-5.20); LYMPHOCYTES PERCENT AUTO 8 % (21-46); MONOCYTES ABSOLUTE AUTO 0.09 K/mm3 (0.16-1.47); MONOCYTES PERCENT AUTO 1 % (4-13); Mean Corpuscular HGB 27.1 pg (26.0-34.0); Mean Corpuscular HGB Conc 31.3 g/dL (31.5-36.5); Mean Corpuscular Volume 87 fL (80-100); Mean Platelet Volume 9.2 fL (9.1-12.4); NEUTROPHILS PERCENT AUTO 91 % (41-73); Platelet Count 352 K/mm3 (150-400); RDW Coefficient Variation 13.8 % (11.7-14.2); RDW Standard Deviation 43.6 fL (35.1-46.3); Red Blood Cell Count 4.61 M/mm3 (3.80-5.20); White Blood Cell Count 12.33 K/mm3 (4.00-11.30)
[2020-07-05 05:38] LABS: Anion Gap 6 mmol/L (6-16); Blood Urea Nitrogen 9 mg/dL (8-24); CO2, Blood 25 mmol/L (21-32); Calcium, Blood 8.9 mg/dL (8.5-10.1); Chloride, Blood 107 mmol/L (98-108); Creatinine, Blood 0.53 mg/dL (0.40-1.00); Glomerular Filtration Rate >60 (60-); Glucose, Blood 157 mg/dL (70-99); Potassium, Blood 4.3 mmol/L (3.5-5.5); Sodium, Blood 138 mmol/L (136-145)
--- NOTE | 2020-07-05 17:59 | NUR ---
SHIFT SUMMARY PT AxOx4. PLEASANT AND COOPERATIVE WITH CARE. C/O PAIN IN R JAW/FACE. MEDICATED PER EMAR WITH TORADOL AND TYLENOL. DR ROSADO ADVANCED DIET FROM FULL LIQUID TO FULL DIET PER PT'S REQUEST. PT TOLERATED DIET WELL. PT IN ROOM FOR VISIT TODAY. PER MACHINE CUTTER, SR 88. TELE DC'D. PT INDEPENDENT IN THE ROOM, CALLS APPROPRIATELY. VITALS STABLE TODAY. WBC TRENDING DOWN. PT STATES SHE IS FEELING BETTER THAN SHE WAS YESTERDAY. PLAN TO KEEP PT INPATIENT THROUGH WEEKEND FOR IV ABX. BLOOD CULTURES AND NASAL SWAB/MRSA PENDING. PT CURRENTLY RESTING IN BED WITH CALL LIGHT IN REACH. DENIES ANY NEEDS AT THIS TIME.
--- NOTE | 2020-07-05 20:32 | NUR ---
RECEIVED REPORT FROM APRIL ALMANZA. WILL ASSUME CARE OF PT. WILL MONITOR AND PROVIDE CARE T/O SHIFT. CALL LT IN REACH.
--- NOTE | 2020-07-05 21:06 | NUR ---
PT RESTING QUIETLY AT THIS TIME. CALL LT IN REACH.
--- NOTE | 2020-07-06 04:10 | NUR ---
PT STATES THAT HER RIGHT SIDE OF FACE IS STILL PAINFUL, WILL MEDICATE WITH IV PAIN MED WHEN AVAILABLE. WARM PACK GIVEN TO PT, PT STATES IT FEELS SO GOOD. WILL MONITOR. CALL LT IN REACH.
--- NOTE | 2020-07-06 04:17 | NUR ---
SHIFT SUMMARY: PT STATES SHE HAD A GOOD DAY, STARTED ON CARDIAC DIET, ATE ALL HER LUNCH AND DINNER. NO SWALLOWING DIFFICULTIES. PT COMPLAINED OF PAIN TO HER RIGHT JAW LATER IN SHIFT. MEDICATED X 2 WITH IV PAIN MED WITH RELIEF. WARM PACK GIVEN FOR PAIN RELIEF. STATES R JAW PAIN BUT NO DIFFICULTY WITH SWALLOWING. WILL CONTINUE TO MONITOR AND PROVIDE CARE UNTIL SHIFT REPORT.
--- NOTE | 2020-07-06 08:22 | NUR ---
INCREASE MOUTH PAIN PT HAD INCREASED MOUNTH/JAW PAIN OVERNIGHT. PT ONLY ABLE TO EAT YOGURT THIS AM AND ASKED FOR PAIN MEDS AFTER DUE TO DISCOMFORT.
[2020-07-06] MEDS ORDERED: TRAM50 PO (11:40)
[2020-07-06] MEDS ORDERED: AMOCLA875 PO (11:41)
--- NOTE | 2020-07-06 13:09 | NUR ---
PT DISCHARGED PT DISCHARGED AT 1259. PT RECIEVED NOON DOSE OF TORADOL PRIOR TO DC. NO CHANGES IN ASSESSMENT PRIOR TO DC. PT EDUCATED ON NEW MEDS AND GIVEN HARD SCRIPT. PT STATES SHE WILL BE CALLING HER DENTIST IN THE MORNING FOR TREATMENT. PT STATES SHE UNDERSTANDS DC INSTRUCTIONS AND HAS NO OTHER QUESTIONS.
== END 2020-07-06 13:00 | disposition home or self-care (01) | DRG 872 ==
LOC: ER 16:13 → MEDS 20:09 → SURS 20:49 → MEDS 20:50
PROVIDERS: Nurse Practitioner Acute Care; Physician Assistant; ADMIT Internal Medicine
DX: A41.9 Sepsis, unspecified organism (principal); I50.42 Chronic combined systolic (congestive) and diastolic (congestive) heart failure; J96.11 Chronic respiratory failure with hypoxia; I11.0 Hypertensive heart disease with heart failure; K05.6 Periodontal disease, unspecified; K04.7 Periapical abscess without sinus; Z99.81 Dependence on supplemental oxygen; F32.9 Major depressive disorder, single episode, unspecified; F41.9 Anxiety disorder, unspecified; Z87.891 Personal history of nicotine dependence
CPT/HCPCS: 36415; 70491; 80048; 80053; 81001; 81025; 83605; 85025; 87040; 87086; 94760; 94762; 96361; 96365; 96375; 99284-25; A9270; J0295; J1100; J1170; J1650; J1885; J2405; J7030; J7050; Q9967

== ENCOUNTER 2020-07-06 18:23 | Emergency (ER) | payer OTHER ==
[~2020-07-06] VITALS: Ht 160 cm; Wt 126.5 kg
[~2020-07-06 18:23] MED LIST changes: +AMOCLA875 PO; +CARVEDILOL3.125 MG PO; +CARVEDILOL6.25 MG PO; +TRAM50 PO
== END 2020-07-06 20:36 | disposition home or self-care (01) ==
LOC: ER 18:23
DX: L03.211 Cellulitis of face (principal); Z79.899 Other long term (current) drug therapy
CPT/HCPCS: 96372; 99282-25; J1885

== ENCOUNTER → 2021-07-23 | Outpatient (CLI) | payer OTHER | END | disposition home or self-care (01) | LOC: LAB SHORT 11:18 | DX: J02.9 Acute pharyngitis, unspecified (principal) | CPT/HCPCS: 87081 ==

== ENCOUNTER → 2021-12-07 | Outpatient (CLI) | payer OTHER ==
[2021-12-07 12:42] LABS: BASOPHILS ABSOLUTE AUTO 0.04 K/mm3 (0.00-0.23); BASOPHILS PERCENT AUTO 1 % (0-2); EOSINOPHILS ABSOLUTE AUTO 0.14 K/mm3 (0.00-0.68); EOSINOPHILS PERCENT AUTO 2 % (0-6); Hematocrit 41.6 % (33.0-51.0); Hemoglobin 13.6 g/dL (11.5-16.0); IMMATURE GRAN ABSOLUTE AUTO 0.03 K/mm3 (0.00-0.10); IMMATURE GRAN PERCENT AUTO 0 % (0-1); LYMPHOCYTES ABSOLUTE AUTO 1.91 K/mm3 (0.84-5.20); LYMPHOCYTES PERCENT AUTO 27 % (21-46); MONOCYTES ABSOLUTE AUTO 0.67 K/mm3 (0.16-1.47); MONOCYTES PERCENT AUTO 10 % (4-13); Mean Corpuscular HGB 28.5 pg (26.0-34.0); Mean Corpuscular HGB Conc 32.7 g/dL (31.5-36.5); Mean Corpuscular Volume 87 fL (80-100); Mean Platelet Volume 9.6 fL (9.1-12.4); NEUTROPHILS ABSOLUTE AUTO 4.22 K/mm3 (1.96-9.15); NEUTROPHILS PERCENT AUTO 60 % (41-73); Platelet Count 314 K/mm3 (150-400); RDW Coefficient Variation 14.4 % (11.7-14.2); RDW Standard Deviation 46.1 fL (35.1-46.3); Red Blood Cell Count 4.77 M/mm3 (3.80-5.20); White Blood Cell Count 7.01 K/mm3 (4.00-11.30)
[2021-12-07 12:56] LABS: Alanine Aminotransfer (ALT/SGP 22 U/L (12-78); Albumin, Blood 3.6 g/dL (3.4-5.0); Alk Phos 103 U/L (40-126); Anion Gap 9 mmol/L (6-16); Aspartate Aminotrans (AST/SGOT 18 U/L (12-37); Bilirubin, Total 0.4 mg/dL (0.1-1.0); Blood Urea Nitrogen 14 mg/dL (8-24); Bun/Creatinine Ratio 18.2 (12.0-20.0); CO2, Blood 27 mmol/L (21-32); Calcium, Blood 8.5 mg/dL (8.5-10.1); Chloride, Blood 104 mmol/L (98-108); Creatinine, Blood 0.77 mg/dL (0.40-1.00); Globulin, Blood 3.6 g/dL (2.2-4.0); Glomerular Filtration Rate >60 (60-); Glucose, Blood 102 mg/dL (70-99); Potassium, Blood 4.2 mmol/L (3.5-5.5); Sodium, Blood 140 mmol/L (136-145); Total Protein, Blood 7.2 g/dL (6.4-8.2)
== END ==
LOC: LAB 12:34 → LAB SHORT 12:34
PROVIDERS: Physician Assistant Medical
DX: R07.9 Chest pain, unspecified (principal)
CPT/HCPCS: 80053; 83880; 84484; 85025

== ENCOUNTER 2023-01-04 20:06 | Emergency (ER) | payer OTHER ==
[~2023-01-04] VITALS: Ht 160 cm; Wt 117.9 kg
[~2023-01-04 20:06] MED LIST changes: +OXYC5 PO
[2023-01-05] MEDS ORDERED: LIDO700A20 TOP (18:45)
[2023-01-05] MEDS ORDERED: CEPH500 PO (18:45)
== END 2023-01-04 20:24 | disposition home or self-care (01) ==
LOC: ER 20:06
DX: R93.6 Abnormal findings on diagnostic imaging of limbs (principal)
CPT/HCPCS: 29515; 99281-25

== ENCOUNTER 2023-01-05 16:50 | Emergency (ER) | payer OTHER ==
[~2023-01-05] VITALS: Ht 160 cm; Wt 117.9 kg
[2023-01-05 16:56] VITALS: BP 132/86
[2023-01-05] MEDS ORDERED: LIDO700A20 TOP (18:45)
[2023-01-05] MEDS ORDERED: CEPH500 PO (18:45)
== END 2023-01-05 19:00 | disposition home or self-care (01) ==
LOC: ER 16:50
DX: S20.211A Contusion of right front wall of thorax, initial encounter (principal); L03.114 Cellulitis of left upper limb; I11.0 Hypertensive heart disease with heart failure; I50.42 Chronic combined systolic (congestive) and diastolic (congestive) heart failure; Z91.013 Allergy to seafood; Z88.7 Allergy status to serum and vaccine; Z88.1 Allergy status to other antibiotic agents; Z91.018 Allergy to other foods; Z79.899 Other long term (current) drug therapy; X50.1XXA Overexertion from prolonged static or awkward postures, initial encounter
CPT/HCPCS: 71101; 73130; A9270

== ENCOUNTER 2023-01-14 07:25 | Day surgery (SDC) | payer OTHER ==
[~2023-01-14] VITALS: Ht 160 cm; Wt 119.3 kg
[~2023-01-14 07:25] MED LIST changes: +CEPH500 PO; +LIDO700A20 TOP
[2023-01-14] MEDS ORDERED: ACET500 PO (08:32)
--- NOTE | 2023-01-14 11:26 | NUR ---
01/14/23 1126 KARIE ALEXANDRA PT COUGHING. PAIN 02/14.
--- NOTE | 2023-01-14 12:12 | NUR ---
01/14/23 1212 KARIE ALEXANDRA PT UP TO BATHROOM- DOING WELL.
[2023-01-14 13:06] VITALS: BP 129/77
== END 2023-01-14 13:33 | disposition home or self-care (01) ==
LOC: ORSCSDS 07:25
PROVIDERS: Podiatrist Foot & Ankle Surgery
PROC: 0SSL04Z Reposition Left Tarsometatarsal Joint with Internal Fixation Device, Open Approach (ICD-10-PCS; principal; 2023-01-14 09:00)
DX: S93.322A Subluxation of tarsometatarsal joint of left foot, initial encounter (principal); F17.210 Nicotine dependence, cigarettes, uncomplicated; E66.01 Morbid (severe) obesity due to excess calories; Z68.42 Body mass index [BMI] 45.0-49.9, adult; V89.2XXA Person injured in unspecified motor-vehicle accident, traffic, initial encounter
CPT/HCPCS: A9270; C1713; J0171; J0690; J1100; J1170; J2250; J2405; J2704; J2795; J3010; J7120

== ENCOUNTER 2023-04-10 11:56 | Emergency (ER) | payer OTHER ==
[~2023-04-10] VITALS: Ht 160 cm; Wt 117.9 kg
[~2023-04-10 11:56] MED LIST changes: +ACET500 PO
[2023-04-10 12:07] VITALS: BP 113/95
== END 2023-04-10 16:21 | disposition home or self-care (01) ==
LOC: ER 11:56
DX: T81.89XA Other complications of procedures, not elsewhere classified, initial encounter (principal); I11.0 Hypertensive heart disease with heart failure; I50.42 Chronic combined systolic (congestive) and diastolic (congestive) heart failure; Z91.012 Allergy to eggs; Z88.1 Allergy status to other antibiotic agents; Z91.018 Allergy to other foods; Z88.7 Allergy status to serum and vaccine; Z79.899 Other long term (current) drug therapy; Z87.891 Personal history of nicotine dependence; X58.XXXA Exposure to other specified factors, initial encounter
CPT/HCPCS: 73620; 93971; 96374; 99284-25; J1885